=== PATIENT | male | born 1940 | race Caucasian/White ===

== ENCOUNTER 2021-07-05 11:15 | Emergency (ER) | payer OTHER ==
[~2021-07-05] VITALS: Ht 182.9 cm; Wt 86.2 kg
[2021-07-05] MEDS ORDERED: POTASSIUM PO (11:29)
[2021-07-05] MEDS ORDERED: ACET-2154 PO (11:29)
[2021-07-05] MEDS ORDERED: PANT40TA49 PO (11:29)
[2021-07-05] MEDS ORDERED: SUCR1TAB31 PO (11:29)
[2021-07-05] MEDS ORDERED: ATENOLOL PO (11:29)
[2021-07-05] MEDS ORDERED: FURO-152 PO (11:29)
[2021-07-05] MEDS ORDERED: NORCO PO (11:29)
[2021-07-05] MEDS ORDERED: LISI2.5T14 PO (11:29)
[2021-07-05] MEDS ORDERED: LEVO25TA9 PO (11:29)
--- NOTE | 2021-07-05 11:29 | NUR ---
Pt states he has open wound of coccyx, LLE and RLE, which home health nurse taking care of.
[2021-07-05] MEDS ORDERED: HYDROCODONE/APAP 5-325MG TABLET PO ONE ×2 (12:00→14:30)
[2021-07-05] MEDS ORDERED: HYDROCODONE/APAP 5-325MG TABLET ONE ×2 (12:01→14:41)
[2021-07-05 12:03] LABS: HEMATOCRIT 42.6 % (36.7-47.1); MEAN CORPUSCULAR HEMOGLOBIN 31.6 uug (23.8-33.4); MEAN CORPUSCULAR VOLUME 92.9 fL (73.0-96.2); PLATELET COUNT (AUTO) 474 K/uL (152-348)
[2021-07-05 12:13] LABS: CREATININE 1.2 mg/dL (0.6-1.3)
[2021-07-05 12:26] LABS: BILIRUBIN,TOTAL 1.1 mg/dL (0.2-1.0); TOTAL PROTEIN, SERUM 7.1 g/dL (6.4-8.2)
--- NOTE | 2021-07-05 13:22 | NUR ---
Dr Lovelace spoke to [facility] rep. Awaiting call back from [facility]
--- NOTE | 2021-07-05 14:10 | NUR ---
Patient is resting comfortably in bed with eyes closed, NAD noted.
--- NOTE | 2021-07-05 14:20 | NUR ---
Dr Mahoney from [place] spoke to dr Lovelace, transfer info to follow.
--- NOTE | 2021-07-05 17:16 | NUR ---
Contacted [facility] for follow up, and spoke to Mavis, no bed available yet. Pt made aware.
--- NOTE | 2021-07-05 20:04 | NUR ---
Hands off report given to Cameron QUEEN.
--- NOTE | 2021-07-05 20:47 | NUR ---
[facility] CALLED WITH TRANSFER INFO PT ACCEPTED TO [facility] ROOM: 5[address] [id number] REPORT # [phone] [facility] WITH ETA OF [phone]
--- NOTE | 2021-07-05 22:15 | NUR ---
Gave SBAR report to Katalina ruiz from [facility].
--- NOTE | 2021-07-05 22:25 | NUR ---
Gave SBAR report to [facility].
--- NOTE | 2021-07-05 22:31 | NUR ---
Transfered to [facility] via [facility].
== END 2021-07-06 | disposition short-term general hospital (02) ==
LOC: ER 11:15
DX: E87.1 Hypo-osmolality and hyponatremia (principal); M79.89 Other specified soft tissue disorders; M79.605 Pain in left leg; M79.604 Pain in right leg; Z20.822 Contact with and (suspected) exposure to COVID-19; R09.89 Other specified symptoms and signs involving the circulatory and respiratory systems; R00.1 Bradycardia, unspecified; K21.9 Gastro-esophageal reflux disease without esophagitis; Z85.05 Personal history of malignant neoplasm of liver; E03.9 Hypothyroidism, unspecified
CPT/HCPCS: 36415; 70030-TC; 71045; 85025; 93005; A4663